=== PATIENT | male | born 1935 | race Asian ===

== ENCOUNTER 2023-02-08 09:10 | Inpatient (IN) | payer MEDICARE, OTHER ==
[~2023-02-08] VITALS: Ht 162.6 cm; Wt 47.2 kg
[2023-02-08] MEDS ORDERED: DEXTROSE 50% 50 ML DISP.SYRIN ONE (09:24)
[2023-02-08] MEDS ORDERED: DEXTROSE 50% 50 ML DISP.SYRIN IV ONE (09:30)
[2023-02-08] MEDS ORDERED: LINA5TAB PO (09:31)
[2023-02-08] MEDS ORDERED: ASPI-1420 PO (09:31)
[2023-02-08] MEDS ORDERED: DONE5TAB34 PO (09:31)
[2023-02-08] MEDS ORDERED: LISI2.5T14 PO (09:31)
[2023-02-08] MEDS ORDERED: OMEP40CA21 PO (09:31)
[2023-02-08] MEDS ORDERED: SIMV10TA98 PO (09:31)
[2023-02-08] MEDS ORDERED: INSU100V7 SQ (09:31)
--- NOTE | 2023-02-08 09:43 | NUR ---
PT IS IN ROOM #2B. DR CANALES EVALUATED THE PT.
[2023-02-08 09:46] LABS: HEMATOCRIT 38.7 % (36.7-47.1); MEAN CORPUSCULAR HEMOGLOBIN 29.8 uug (23.8-33.4); MEAN CORPUSCULAR VOLUME 89.8 fL (73.0-96.2); PLATELET COUNT (AUTO) 238 K/uL (152-348)
--- NOTE | 2023-02-08 09:48 | NUR ---
PT IS AWAKE NOW, CAN SPEAK IN FULL SENTENCES, AND MOVE WIYH ALL FOUR EXTREMITIES , DR CANALES EVALUATED THE PT.
[2023-02-08 10:03] LABS: ALANINE AMINOTRANSFERASE 24 U/L (16-63); ALKALINE PHOSPHATASE 89 U/L (50-136); ASPARTATE AMINOTRANSFERASE 18 U/L (15-37); BILIRUBIN,DIRECT 0.1 mg/dL (0.0-0.2); BILIRUBIN,TOTAL 0.2 mg/dL (0.2-1.0); CARBON DIOXIDE 27 mmol/L (21-32); CHLORIDE 109 mmol/L (98-107); CREATININE 1.8 mg/dL (0.6-1.3); POTASSIUM 3.4 mmol/L (3.5-5.1); TOTAL PROTEIN, SERUM 7.6 g/dL (6.4-8.2); UREA NITROGEN, BLOOD 40 mg/dL (7-18)
[2023-02-08 10:08] LABS: THYROID STIMULATING HORMONE 2.047 mIU/mL (0.358-3.740)
[2023-02-08] MEDS ORDERED: IV NORMAL SALINE 1000 ML BAG IV ONE (10:30)
--- NOTE | 2023-02-08 11:47 | NUR ---
REPORT WAS GIVEN TO APARTMENT LEASING CONSULTANT. PT WAS TRANSFERED TO TELEMETRY ROOM #319.
--- NOTE | 2023-02-08 12:30 | NUR ---
PATIENT ARRIVED FROM ED. VSS AND BLOOD GLUCOSE NOW STABLE, NAD. PATIENT IS AOX1. SKIN INTACT, BELONGINGS VERIFIED AND WITH PATIENT. PER , LYNDA, PATIENT IS DNR/DNI.
[2023-02-08] MEDS ORDERED: ACETAMINOPHEN 325 MG TABLET PO PRN (12:45)
[2023-02-08] MEDS ORDERED: REMEDY ESSENTIAL ZINC PASTE 113 GM TP PRN (12:45)
[2023-02-08] MEDS ORDERED: ONDANSETRON 4 MG/2 ML VIAL IV PRN (12:45)
[2023-02-08] MEDS ORDERED: POTASSIUM CHLORIDE 20 MEQ TAB.PRT.SR PO ONE (12:45)
[2023-02-08 13:13] VITALS: BP 140/62; TEMP 98.4; O2SAT 97
[2023-02-08] MEDS ORDERED: DEXTROSE 50% 50 ML DISP.SYRIN IV PRN (13:30)
[2023-02-08 13:42] LABS: THYROID STIMULATING HORMONE 1.329 mIU/mL (0.358-3.740)
[2023-02-08 15:51] VITALS: BP 152/60; TEMP 98.6; O2SAT 97
[2023-02-08] MEDS: BLOOD SUGAR DIAGNOSTIC 1 EACH STRIP VI SCH ×2 (17:43→20:17)
[2023-02-08] MEDS: INSULIN REGULAR, HUMAN 300 UNIT/3 ML VIAL SQ PRN ×2 (17:43→20:19)
[2023-02-08] MEDS: IV D5 1/2 NS 1000 ML 1,000 ML IV PRN (19:00)
[2023-02-08 20:00] VITALS: BP 144/59; TEMP 97.6; O2SAT 97
[2023-02-08] MEDS ORDERED: SIMVASTATIN 10 MG TABLET PO SCH (21:00)
[2023-02-09] VITALS: BP 127/57; TEMP 98.4; O2SAT 99
[2023-02-09] MEDS: IV D5 1/2 NS 1000 ML 1,000 ML IV PRN (00:52)
[2023-02-09 04:00] VITALS: BP 169/73; TEMP 98.5; O2SAT 98
--- NOTE | 2023-02-09 05:46 | NUR ---
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 Continue monitoring safety restraints released for ROM then reapplied and close observation maintain to keep IV in place.. Endorse care to incoming nurse
[2023-02-09 06:20] LABS: HEMATOCRIT 36.2 % (36.7-47.1); MEAN CORPUSCULAR VOLUME 90.6 fL (73.0-96.2); PLATELET COUNT (AUTO) 250 K/uL (152-348)
[2023-02-09 06:46] LABS: CARBON DIOXIDE 21 mmol/L (21-32); CHLORIDE 109 mmol/L (98-107); CREATININE 1.6 mg/dL (0.6-1.3); MAGNESIUM 1.9 mg/dL (1.8-2.4); PHOSPHOROUS 2.4 mg/dL (2.5-4.9); POTASSIUM 4.5 mmol/L (3.5-5.1); UREA NITROGEN, BLOOD 30 mg/dL (7-18)
[2023-02-09] MEDS: BLOOD SUGAR DIAGNOSTIC 1 EACH STRIP VI SCH ×2 (06:57→11:27)
[2023-02-09] MEDS ORDERED: PANTOPRAZOLE SODIUM 40 MG TABLET.DR PO SCH (07:00)
[2023-02-09] MEDS ORDERED: ASPIRIN EC 81 MG TABLET.DR PO SCH (09:00)
[2023-02-09] MEDS ORDERED: DONEPEZIL 5 MG TABLET PO SCH (09:00)
[2023-02-09] MEDS ORDERED: LINAGLIPTIN 5 MG TABLET PO SCH (09:00)
[2023-02-09] MEDS ORDERED: LISINOPRIL 5 MG TABLET PO SCH (09:00)
[2023-02-09] MEDS: INSULIN REGULAR, HUMAN 300 UNIT/3 ML VIAL SQ PRN (09:07)
--- NOTE | 2023-02-09 10:00 | NUR ---
Rcvd pt in bed resting comfortable at bilateral soft restraint. Visual check of restraint q 15 but check circulation 2qhrs. Left upper arm IV patent and intact. Routine meds given and pt tolerated well. Consumed 90% breakfast. Family on bedside.
[2023-02-09 11:07] VITALS: BP 141/69; TEMP 98.1; O2SAT 98
[2023-02-09] MEDS ORDERED: INSU100V7 SQ (13:00)
[2023-02-09] MEDS ORDERED: NEUTRA PHOS PACKET PO ONE (13:00)
--- NOTE | 2023-02-09 17:01 | NUR ---
Pt. discharged home at around 4 pm. Picked by family but wheeled him down via wheelchair. Pt. and family teaching provided especially in diabetes management. All belongings and valuables accounted for. Discharge protocol observed. Pt. stable at the time of discharge. Family was thankful and appreciative for the service.
== END 2023-02-09 16:00 | disposition home or self-care (01) | DRG 637 ==
LOC: ER 09:10 → TELE3 10:56 → EDBD 10:56
PROVIDERS: ADMIT Nurse Practitioner Acute Care; ATTEND Nurse Practitioner Acute Care
DX: E11.649 Type 2 diabetes mellitus with hypoglycemia without coma (principal); G93.41 Metabolic encephalopathy; N17.0 Acute kidney failure with tubular necrosis; E87.6 Hypokalemia; E78.5 Hyperlipidemia, unspecified; K21.9 Gastro-esophageal reflux disease without esophagitis; Z79.4 Long term (current) use of insulin; I44.0 Atrioventricular block, first degree; I10 Essential (primary) hypertension; Z79.84 Long term (current) use of oral hypoglycemic drugs; Z79.899 Other long term (current) drug therapy; Z79.82 Long term (current) use of aspirin; F03.A0 Unspecified dementia, mild, without behavioral disturbance, psychotic disturbance, mood disturbance, and anxiety
CPT/HCPCS: 36415; 70450; 71045; 83735; 84100; 84443; 84484; 85025; 93005; A4663; G0378; J1815; J3490